=== PATIENT | male | born 1945 | race Caucasian/White ===

== ENCOUNTER → 2016-05-05 | Day surgery (SDC) | payer MEDICARE ==
[~2016-05-05] MED LIST: FENO67CA PO; LIDOCAINE 1%/EPI 1:100,000 20 ML VIAL. ONE; PRAV80TA2 PO
[2016-05-05 07:36] VITALS: BP 131/83
--- NOTE | 2016-05-05 08:23 | PDOC ---
BRIEF OPERATIVE NOTE Date: May 05, 2016 Pre-Op Diagnosis Lower back mass Post-Op Diagnosis Same Procedure Performed Excision of lower back mass Surgeon Oj Anesthesia Type: Local Blood Loss 5ml Specimens Obtained lower back mass Findings as above Complications None CRISTINA ANDRE MD May 05, 2016 08:23
--- NOTE | 2016-05-05 08:24 | DISCH ---
DISCHARGE INSTRUCTIONS Condition on Discharge Condition on Discharge: Stable Activity After Discharge Activity Instructions for Disc: No restrictions Diet after Discharge Diet after Discharge: Regular Wound Incision Care Other wound/incision instructi: May shower in 24 hours Contacting the after DC Call your doctor for: If your condition worsens Follow-Up Follow up with: Dr Andre in 2 weeks CRISTINA ANDRE MD May 05, 2016 08:24
--- NOTE | 2016-05-05 08:51 | OP ---
DATE OF SURGERY: 05/05/2016 PREOPERATIVE DIAGNOSIS: Excision of lower back mass. SURGEON: Jacoby Andre MD. INDICATIONS: The patient is a 70-year-old gentleman, who about 6 weeks ago had an I and D of a lower back abscess, likely a sebaceous cyst, who comes in now for complete excision of the cyst. Procedure of excision was explained to the patient in detail. Risks and benefits were also discussed including bleeding, infection, alternatives of this procedure were also discussed with the patient who seemed to understand. He gave verbal and written consent to have the procedure performed. DESCRIPTION OF PROCEDURE: The patient was taken to the ____ room in a sitting position. His lower back over the mass was prepped and draped in the usual sterile fashion using ChloraPrep. The area around the mass was injected with 0.25% lidocaine with epinephrine. Once this was completely anesthetized, an elliptical incision made with a 15 blade scalpel. It was carried down through subcutaneous tissues down to the subcutaneous fat. The cyst was completely excised and sent for pathology. The wound was then closed in a single layer of running 4-0 subcuticular Monocryl. Mastisol, Steri-Strips, and an island dressing were applied. The patient tolerated the procedure well and was discharged home in stable condition. All sponge, needle, and instrument counts were listed as correct. Estimated blood loss was 5 mL. JACOBY ANDRE MD DR: HEMANT/kwan JOB#: [id number] / [id number] RACHELE Maurice
--- NOTE | 2016-05-06 13:46 | PATHOLOGY ---
PATHOLOGY REPORT * * * * * * * * FINAL DIAGNOSIS: Skin and subcutaneous tissue, mid back mass: - Epidermal inclusion cyst, with chronic inflammation, scarring, and focal foreign body giant cell reaction. COMMENT: There is no evidence of malignancy. (JPM:; d/t: 05/06/16) REPORT ELECTRONICALLY SIGNED BY: Malvin Wray M.D. DATE/TIME: 05/06/2016 13:45 * * * * * * * * GROSS PATHOLOGY: The specimen is received in formalin labeled "Darryl Choi, mid back mass". Received is an ellipse of pale rodríguez, grossly unremarkable skin measuring 3.2 x 1.0 x 1.5 cm in greatest dimensions. The surgical margin is inked. Sectioning reveals a possible previously ruptured unilocular cystic structure measuring 0.6 cm. The specimen is submitted representatively in cassette A1. (CAA; 05/05/2016) INITIAL CPT CODE(S): A; 30706 Professional services performed by [facility] [place] [address] Technical services performed by [facility] at [address] [place] [address] [address] [place] [address]. SPECIMEN(S) RECEIVED: A.Mid back mass CLINICAL HISTORY: Mid back mass PATIENT: DARRYL CHOI /AGE: 607/27/1945 (Age: 70) PATIENT #: [id number] ALT CASE #: SPECIMEN COLLECTION DATE: 05/05/2016 SPECIMEN RECEIVED DATE: 05/05/2016 [facility] - [address] [place] [address] - PHONE: [phone] * * * END OF REPORT * * *
== END | disposition home or self-care (01) ==
LOC: SURG 06:48
PROVIDERS: ATTEND Surgery
DX: L72.8 Other follicular cysts of the skin and subcutaneous tissue (principal); E78.00 Pure hypercholesterolemia, unspecified
CPT/HCPCS: 11404; 88304; J3490